=== PATIENT | female | born 1950 | race Caucasian/White ===

== ENCOUNTER → 2018-06-21 15:03 | Outpatient (CLI) | payer MEDICARE, BC, SELFPAY ==
[2018-06-21 18:44] LABS: Free T3 1.5 pg/mL (2.18-3.98); T4 Free Direct 1.32 ng/dL (0.76-1.46); Thyroid Stim Hormone (TSH) 1.85 uIU/mL (0.358-3.74)
== END ==
PROVIDERS: Family Provider Internal Medicine; PCP Internal Medicine; Visit Provider Nurse Practitioner
DX: E03.9 Hypothyroidism, unspecified (principal)
CPT/HCPCS: 36415; 84439; 84443; 84481